=== PATIENT | female | born 1950 | race Caucasian/White ===

== ENCOUNTER 2019-05-05 10:48 | Day surgery (SDC) ==
[~2019-05-05 10:48] MED LIST: ASPIRIN 325 MG TABLET PO ONE; DIAZEPAM 5 MG TABLET PO ONE; MAGNESIUM SULF RIDER 2 GM in PREMIX 1 EACH IV PRN; POTASSIUM CHLORIDE RIDER 10 MEQ in PREMIX 1 EACH IV PRN; diphenhydrAMINE CAP 25 MG CAPSULE PO ONE
[2019-05-05] MEDS ORDERED: diphenhydrAMINE CAP 25 MG CAPSULE ONE (12:08)
[2019-05-05] MEDS ORDERED: DIAZEPAM 5 MG TABLET ONE (12:08)
[2019-05-05] MEDS ORDERED: ASPIRIN 325 MG TABLET ONE (12:09)
[2019-05-05] MEDS: SODIUM CHLORIDE 0.9% 1,000 ML IV SCH (12:15)
[2019-05-05] MEDS ORDERED: LIDOCAINE 1% 20 ML VIAL ONE (14:14)
[2019-05-05] MEDS ORDERED: MIDAZOLAM 2 MG/2 ML VIAL ONE (14:19)
[2019-05-05] MEDS ORDERED: HYDROmorphone 2 MG/1 ML VIAL ONE (14:19)
[2019-05-05] MEDS ORDERED: HEPARIN 5,000 UNIT/1 ML VIAL ONE (14:37)
[2019-05-05] MEDS ORDERED: hydrALAZINE 20 MG/1 ML VIAL ONE (15:52)
[2019-05-05] MEDS ORDERED: ZALEPLON 5 MG CAPSULE PO PRN (15:56)
[2019-05-05] MEDS ORDERED: ONDANSETRON 4 MG/2 ML VIAL IV PRN (15:56)
[2019-05-05] MEDS ORDERED: ACETAMINOPHEN 325 MG TABLET PO PRN (15:56)
[2019-05-05] MEDS ORDERED: NITROGLYCERIN SL 0.4 MG TABLET SL PRN (15:56)
[2019-05-05] MEDS ORDERED: HYDROmorphone 2 MG/1 ML VIAL IV PRN (15:56)
[2019-05-05] MEDS ORDERED: TICAGRELOR 90 MG TABLET ONE (16:02)
[2019-05-05] MEDS ORDERED: ALUMINUM/MAGNES/SIMETH MAX STR 30 ML UDCUP PO PRN (17:26)
[2019-05-05] MEDS: TICAGRELOR 90 MG TABLET PO SCH (21:20)
[2019-05-06] MEDS: SODIUM CHLORIDE 0.9% 1,000 ML IV SCH ×3 (00:16→09:27)
[2019-05-06 05:19] LABS: Basophils % 0.2 % (0.0-0.8); Hematocrit 31.4 VOL% (35.7-47.0); Hemoglobin 10.4 GM/DL (12.0-16.0); Immature Granulocytes % 0.4 %; Immature Granulocytes Absolute 0.02 #; Lymphocytes # 0.8 10*3/uL (1.4-4.0); Lymphocytes % 15.2 % (21.3-54.2); Mean Corpuscular HGB Conc 33.1 GM/DL (32-36); Mean Corpuscular Volume 96.9 FL (87-102); Mean Platelet Volume 11.8 FL (9.6-12.0); Monocytes % 6.6 % (1.7-12.7); Neutrophils % 77.6 % (38.7-73.9); Platelet Count 122 T/CUMM (130-400); Red Blood Count 3.24 MC/CUMM (3.8-5.5); Red Cell Distribution Width 13.4 % (9.3-17.3); White Blood Count 5.3 T/CUMM (4-12)
[2019-05-06 05:32] LABS: Calcium 9.3 MG/DL (8.5-10.1); Osmolality,Calculated 279.3 MOS/KG (273-304)
[2019-05-06 08:33] VITALS: BP 164/68
[2019-05-06] MEDS ORDERED: MAGNESIUM OXIDE 400 MG TABLET PO SCH (09:00)
[2019-05-06] MEDS ORDERED: ASPIRIN EC 81 MG TABLET PO SCH (09:00)
[2019-05-06] MEDS ORDERED: POTASSIUM CHLORIDE 10 MEQ TABLET PO SCH (09:00)
[2019-05-06] MEDS ORDERED: EZETIMIBE 10 MG TABLET PO SCH (09:00)
[2019-05-06] MEDS ORDERED: CYANOCOBALAMIN 500 MCG TABLET PO SCH (09:00)
[2019-05-06] MEDS ORDERED: FUROSEMIDE 20 MG TABLET PO SCH (09:00)
[2019-05-06] MEDS ORDERED: ISOSORBIDE MONONITRATE 60 MG TABLET PO SCH (09:00)
[2019-05-06] MEDS ORDERED: ROSUVASTATIN 20 MG TABLET PO SCH (09:00)
[2019-05-06] MEDS ORDERED: URSODIOL 300 MG CAPSULE PO SCH (09:00)
[2019-05-06] MEDS ORDERED: ATENOLOL 25 MG TABLET PO SCH (09:00)
[2019-05-06] MEDS: TICAGRELOR 90 MG TABLET PO SCH (09:25)
== END 2019-05-06 10:57 | disposition home or self-care (01) ==
LOC: N.CL 10:48 → N.5E 14:48 → N.CL 05-06 10:57 → N.5E 05-06 13:14
PROVIDERS: ATTEND Internal Medicine Cardiovascular Disease

== ENCOUNTER 2022-01-25 22:44 | Inpatient (IN) ==
[2022-01-25] MEDS ORDERED: ONDANSETRON 4 MG/2 ML VIAL IV ONE (23:23)
[2022-01-25] MEDS ORDERED: fentaNYL 100 MCG/2 ML VIAL IV STA (23:23)
[2022-01-26] MEDS ORDERED: propofoL 200 MG/20 ML VIAL IV STA (00:16)
[2022-01-26] MEDS ORDERED: SODIUM CHLORIDE 0.9% 1,000 ML IV STA ×2 (00:33→03:00)
[2022-01-26 01:26] LABS: INR 1.3; Partial Thromboplastin Time 30.4 SECS (23.8-32.1)
[2022-01-26 01:29] LABS: Basophils % 0.3 % (0.0-0.8); Eosinophils # 0.1 10*3/uL (0.0-0.87); Hemoglobin 9.5 GM/DL (12.0-16.0); Immature Granulocytes Absolute 0.06 #; Lymphocytes # 1.5 10*3/uL (1.4-4.0); Lymphocytes % 24.5 % (21.3-54.2); Mean Corpuscular HGB Conc 31.7 GM/DL (32-36); Mean Corpuscular Volume 104.5 FL (87-102); Mean Platelet Volume 11.2 FL (9.6-12.0); Monocytes % 6.6 % (1.7-12.7); Neutrophils % 65.6 % (38.7-73.9); Platelet Count 136 T/CUMM (130-400); Red Blood Count 2.87 MC/CUMM (3.8-5.5); Red Cell Distribution Width 18.9 % (9.3-17.3)
[2022-01-26 01:47] LABS: Alanine Aminotransferase 19 U/L (13-56); Albumin 1.7 G/DL (3.4-5.0); Alkaline Phosphatase 121 U/L (45-117); Aspartate Amino Transferase 27 U/L (0-37); Bilirubin,Total < 0.39 MG/DL (0.20-1.00); Blood Urea Nitrogen 6 MG/DL (7-18); Calcium 7.6 MG/DL (8.5-10.1); Carbon Dioxide 28 MMOL/L (21-32); Estimated Glom Filtration Rate 93 ML/MIN; Glucose 115 MG/DL (74-106); Osmolality,Calculated 286.7 MOS/KG (273-304); Potassium 2.9 MMOL/L (3.5-5.1); Sodium 145 MMOL/L (136-145)
[2022-01-26] MEDS ORDERED: DEXAMETHASONE 10 MG/1 ML VIAL IV ONE (01:50)
[2022-01-26] MEDS ORDERED: HYDROmorphone 2 MG/1 ML VIAL IV PRN (04:10)
[2022-01-26] MEDS ORDERED: ONDANSETRON 4 MG/2 ML VIAL IV PRN (04:12)
[2022-01-26] MEDS ORDERED: HYDROmorphone 1 MG/1 ML SYRINGE IV PRN (04:21)
[2022-01-26 08:09] LABS: Basophils % 0.1 % (0.0-0.8); Eosinophils % 0.1 % (0.00-10.9); Hematocrit 25.8 VOL% (35.7-47.0); Hemoglobin 8.3 GM/DL (12.0-16.0); Immature Granulocytes % 0.7 %; Immature Granulocytes Absolute 0.06 #; Lymphocytes # 0.8 10*3/uL (1.4-4.0); Mean Corpuscular HGB Conc 32.2 GM/DL (32-36); Mean Corpuscular Volume 104.5 FL (87-102); Mean Platelet Volume 11.3 FL (9.6-12.0); Monocytes % 5.9 % (1.7-12.7); Neutrophils % 83.2 % (38.7-73.9); Platelet Count 140 T/CUMM (130-400); Red Blood Count 2.47 MC/CUMM (3.8-5.5); White Blood Count 8.3 T/CUMM (4-12)
[2022-01-26] MEDS ORDERED: LACTATED RINGERS 1,000 ML IV ONE (08:26)
[2022-01-26] MEDS ORDERED: POTASSIUM CHLORIDE 20 MEQ TABLET PO SCH (09:00)
[2022-01-26] MEDS ORDERED: DEXAMETHASONE 10 MG/1 ML VIAL IV SCH (09:00)
[2022-01-26 09:12] LABS: Hematocrit 29.1 VOL% (35.7-47.0); Hemoglobin 9.2 GM/DL (12.0-16.0)
[2022-01-26 10:12] LABS: Amorphous Crystals,Urine Few /HPF (Few); Bacteria,Urine Many /HPF (Few); Hyaline Casts,Urine 80 /LPF (0-3); Mucus,Urine Many /LPF (Occasional); RBC,Urine 56 /HPF (0-4); Squamous Epithelial Cell,Urine Few /HPF (0-10)
[2022-01-26 10:13] LABS: Bilirubin,Urine Small mg/dL (Negative); Blood, Urine Large mg/dL (Negative); Glucose,Urine (UA) Negative (Negative); Ketones,Urine Negative (Negative); Nitrite,Urine Negative (Negative); Protein,Urine 2+ mg/dL (Negative); Urine Appearance Cloudy (Clear); Urine Color Amber (Yellow); Urine Specific Gravity 1.028 (1.001-1.035); Urine Urobilinogen 0.2 eU/dL (<2.0); Urine pH 5.5 (4.5-8.0)
[2022-01-26] MEDS: LACTATED RINGERS 1,000 ML IV SCH ×2 (10:30→17:06)
[2022-01-26] MEDS: cefTRIAXone 1,000 MG in SODIUM CHLORIDE 0.9% 100 ML IV SCH (11:28)
[2022-01-26] MEDS ORDERED: LACTATED RINGERS 500 ML IV ONE (12:13)
[2022-01-26] MEDS ORDERED: POTASSIUM CHLORIDE RIDER 10 MEQ/100 ML PREMIX IV PRN (12:23)
[2022-01-26] MEDS ORDERED: MAGNESIUM SULF RIDER 2 GM/50 ML PREMIX IV PRN (12:23)
[2022-01-26] MEDS ORDERED: MAGNESIUM SULF RIDER 4 GM/100 ML PREMIX IV PRN (12:23)
[2022-01-26] MEDS: POTASSIUM BICARB EFFERVESCENT 20 MEQ TAB.EFF PO SCH ×2 (14:10→16:56)
[2022-01-26] MEDS ORDERED: LACTATED RINGERS 250 ML IV ONE (15:58)
[2022-01-26 16:22] LABS: Calcium 7.4 MG/DL (8.5-10.1); Osmolality,Calculated 288.7 MOS/KG (273-304); Potassium 4.1 MMOL/L (3.5-5.1)
[2022-01-26] MEDS: PANTOPRAZOLE 40 MG TABLET PO SCH (16:56)
[2022-01-26] MEDS ORDERED: POTASSIUM BICARB EFFERVESCENT 20 MEQ TAB.EFF PO SCH (17:00)
[2022-01-26] MEDS: ROSUVASTATIN 20 MG TABLET PO SCH (20:15)
[2022-01-26] MEDS: DEXAMETHASONE 10 MG/1 ML VIAL IV SCH (20:15)
[2022-01-26] MEDS: ACETAMINOPHEN 325 MG TABLET PO PRN (20:35)
[2022-01-27] MEDS: ACETAMINOPHEN 325 MG TABLET PO PRN ×3 (05:05→20:45)
[2022-01-27] MEDS: LACTATED RINGERS 1,000 ML IV SCH ×2 (05:10→15:20)
[2022-01-27 06:34] LABS: Basophils % 0.1 % (0.0-0.8); Hematocrit 22.2 VOL% (35.7-47.0); Immature Granulocytes % 0.7 %; Immature Granulocytes Absolute 0.08 #; Lymphocytes % 9.4 % (21.3-54.2); Mean Corpuscular Volume 105.2 FL (87-102); Mean Platelet Volume 11.2 FL (9.6-12.0); Monocytes % 2.6 % (1.7-12.7); Neutrophils % 87.2 % (38.7-73.9); Platelet Count 141 T/CUMM (130-400); Red Blood Count 2.11 MC/CUMM (3.8-5.5); Red Cell Distribution Width 19.9 % (9.3-17.3)
[2022-01-27 06:35] LABS: White Blood Count 11.1 T/CUMM (4-12)
[2022-01-27 06:36] LABS: Hemoglobin 7.1 GM/DL (12.0-16.0)
[2022-01-27 06:39] LABS: Calcium 7.9 MG/DL (8.5-10.1); Osmolality,Calculated 289.8 MOS/KG (273-304); Potassium 4.8 MMOL/L (3.5-5.1)
[2022-01-27 06:48] LABS: Hypochromia Slight; Lymphocytes 6 % (20-55); Segmented Neutrophils 94 % (50-85); Total Cells Counted 100
[2022-01-27 06:49] LABS: Anisocytosis 1+; Macrocytosis 1+; Ovalocytes Slight; Platelet Estimate Adequate
[2022-01-27] MEDS ORDERED: SODIUM CHLORIDE 0.9% 1,000 ML IV PRN ×2 (08:00→08:04)
[2022-01-27] MEDS: ONDANSETRON 4 MG/2 ML VIAL IV PRN (09:12)
[2022-01-27] MEDS: DEXAMETHASONE 10 MG/1 ML VIAL IV SCH ×2 (09:12→20:45)
[2022-01-27] MEDS: PANTOPRAZOLE 40 MG TABLET PO SCH (09:17)
[2022-01-27] MEDS ORDERED: LORazepam 2 MG/1 ML VIAL IV PRN (09:37)
[2022-01-27] MEDS: cefTRIAXone 1,000 MG in SODIUM CHLORIDE 0.9% 100 ML IV SCH (15:19)
[2022-01-27] MEDS: ENOXAPARIN 40 MG/0.4 ML SYRINGE SUBCUT SCH (19:04)
[2022-01-27] MEDS: ROSUVASTATIN 20 MG TABLET PO SCH (20:45)
[2022-01-28] MEDS: ACETAMINOPHEN 325 MG TABLET PO PRN ×2 (03:20→09:07)
[2022-01-28 05:51] LABS: Hematocrit 23.2 VOL% (35.7-47.0); Hemoglobin 7.6 GM/DL (12.0-16.0); Immature Granulocytes % 2.1 %; Immature Granulocytes Absolute 0.17 #; Lymphocytes # 0.7 10*3/uL (1.4-4.0); Lymphocytes % 8.3 % (21.3-54.2); Mean Corpuscular HGB Conc 32.8 GM/DL (32-36); Mean Corpuscular Volume 100.9 FL (87-102); Mean Platelet Volume 11.5 FL (9.6-12.0); Monocytes % 4.3 % (1.7-12.7); Neutrophils % 85.3 % (38.7-73.9); Platelet Count 109 T/CUMM (130-400); Red Cell Distribution Width 20.7 % (9.3-17.3); White Blood Count 8.2 T/CUMM (4-12)
[2022-01-28 06:12] LABS: Albumin 1.7 G/DL (3.4-5.0); Bilirubin,Total 0.9 MG/DL (0.20-1.00); Calcium 8.1 MG/DL (8.5-10.1); Osmolality,Calculated 288.1 MOS/KG (273-304); Potassium 4.4 MMOL/L (3.5-5.1)
[2022-01-28 06:17] LABS: Hypochromia 1+; Lymphocytes 10 % (20-55); Microcytosis 1+; Segmented Neutrophils 85 % (50-85); Total Cells Counted 100
[2022-01-28] MEDS: LACTATED RINGERS 1,000 ML IV SCH ×2 (09:02→15:55)
[2022-01-28] MEDS: DEXAMETHASONE 10 MG/1 ML VIAL IV SCH ×2 (09:03→21:10)
[2022-01-28] MEDS: PANTOPRAZOLE 40 MG TABLET PO SCH (09:03)
[2022-01-28] MEDS: carvediloL 6.25 MG TABLET PO SCH ×2 (11:51→16:03)
[2022-01-28] MEDS: cefTRIAXone 1,000 MG in SODIUM CHLORIDE 0.9% 100 ML IV SCH (11:51)
[2022-01-28] MEDS: LIDOCAINE 5% PATCH TRANSDERM SCH ×2 (16:12→21:10)
[2022-01-28] MEDS ORDERED: carvediloL 25 MG TABLET PO SCH (17:00)
[2022-01-28] MEDS: ENOXAPARIN 40 MG/0.4 ML SYRINGE SUBCUT SCH (17:42)
[2022-01-28] MEDS ORDERED: lisinopriL 20 MG TABLET PO SCH (21:00)
[2022-01-28] MEDS: ROSUVASTATIN 20 MG TABLET PO SCH (21:10)
[2022-01-29] MEDS: ACETAMINOPHEN 325 MG TABLET PO PRN (02:15)
[2022-01-29] MEDS: LACTATED RINGERS 1,000 ML IV SCH (04:45)
[2022-01-29 05:43] LABS: Hematocrit 23.1 VOL% (35.7-47.0); Hemoglobin 7.6 GM/DL (12.0-16.0); Immature Granulocytes % 1.8 %; Immature Granulocytes Absolute 0.11 #; Lymphocytes # 0.6 10*3/uL (1.4-4.0); Mean Corpuscular HGB Conc 32.9 GM/DL (32-36); Mean Corpuscular Volume 102.7 FL (87-102); Mean Platelet Volume 11.7 FL (9.6-12.0); Monocytes % 3.4 % (1.7-12.7); NRBC # 0.03 10*3/uL; Neutrophils % 85.8 % (38.7-73.9); Platelet Count 98 T/CUMM (130-400); Red Blood Count 2.25 MC/CUMM (3.8-5.5); Red Cell Distribution Width 19.6 % (9.3-17.3); White Blood Count 6.2 T/CUMM (4-12)
[2022-01-29 06:05] LABS: Microcytosis 1+; Ovalocytes Slight; Platelet Estimate Decreased
[2022-01-29 06:06] LABS: Hypochromia 1+; Osmolality,Calculated 287.1 MOS/KG (273-304)
[2022-01-29 06:10] LABS: Albumin 1.7 G/DL (3.4-5.0); Bilirubin,Total 0.4 MG/DL (0.20-1.00); Calcium 8.4 MG/DL (8.5-10.1); Osmolality,Calculated 286.3 MOS/KG (273-304); Potassium 3.9 MMOL/L (3.5-5.1); Total Protein 5.1 G/DL (6.4-8.2)
[2022-01-29] MEDS ORDERED: LORazepam 2 MG/1 ML VIAL IV ONE (08:00)
[2022-01-29] MEDS: DEXAMETHASONE 10 MG/1 ML VIAL IV SCH ×2 (10:35→21:55)
[2022-01-29] MEDS: carvediloL 6.25 MG TABLET PO SCH (10:35)
[2022-01-29] MEDS: PANTOPRAZOLE 40 MG TABLET PO SCH (10:35)
[2022-01-29] MEDS: lisinopriL 20 MG TABLET PO SCH (10:35)
[2022-01-29] MEDS: LIDOCAINE 5% PATCH TRANSDERM SCH (10:36)
[2022-01-29] MEDS: ONDANSETRON 4 MG/2 ML VIAL IV PRN (10:47)
[2022-01-29] MEDS: cefTRIAXone 1,000 MG in SODIUM CHLORIDE 0.9% 100 ML IV SCH (11:21)
[2022-01-29] MEDS ORDERED: TUBERCULIN SKIN TEST 0.1 ML SYRINGE INTRADERM ONE (15:00)
[2022-01-29] MEDS: carvediloL 12.5 MG TABLET PO SCH (17:47)
[2022-01-29] MEDS: ENOXAPARIN 40 MG/0.4 ML SYRINGE SUBCUT SCH (17:47)
[2022-01-29] MEDS: ROSUVASTATIN 20 MG TABLET PO SCH (21:55)
[2022-01-30 06:06] LABS: Hematocrit 23.2 VOL% (35.7-47.0); Hemoglobin 7.8 GM/DL (12.0-16.0); Immature Granulocytes % 1.6 %; Immature Granulocytes Absolute 0.08 #; Lymphocytes # 0.5 10*3/uL (1.4-4.0); Lymphocytes % 9.3 % (21.3-54.2); Mean Corpuscular HGB Conc 33.6 GM/DL (32-36); Mean Corpuscular Volume 100.4 FL (87-102); Mean Platelet Volume 11.4 FL (9.6-12.0); Monocytes % 3.8 % (1.7-12.7); NRBC # 0.05 10*3/uL; Neutrophils % 85.3 % (38.7-73.9); Platelet Count 103 T/CUMM (130-400); Red Blood Count 2.31 MC/CUMM (3.8-5.5)
[2022-01-30 06:25] LABS: Calcium 8.2 MG/DL (8.5-10.1); Osmolality,Calculated 284.4 MOS/KG (273-304); Potassium 3.5 MMOL/L (3.5-5.1)
[2022-01-30 06:29] LABS: Bilirubin,Total 0.5 MG/DL (0.20-1.00); Calcium 8.7 MG/DL (8.5-10.1); Osmolality,Calculated 284.4 MOS/KG (273-304); Potassium 3.5 MMOL/L (3.5-5.1); Total Protein 5.5 G/DL (6.4-8.2)
[2022-01-30] MEDS ORDERED: hydrALAZINE 20 MG/1 ML VIAL IV PRN (07:26)
[2022-01-30] MEDS: LACTATED RINGERS 1,000 ML IV SCH ×3 (09:11→20:06)
[2022-01-30] MEDS: carvediloL 12.5 MG TABLET PO SCH ×2 (09:12→17:12)
[2022-01-30] MEDS: lisinopriL 20 MG TABLET PO SCH ×2 (09:12→21:23)
[2022-01-30] MEDS: PANTOPRAZOLE 40 MG TABLET PO SCH (09:12)
[2022-01-30] MEDS: ASPIRIN EC 81 MG TABLET PO SCH (09:12)
[2022-01-30] MEDS: LIDOCAINE 5% PATCH TRANSDERM SCH (09:13)
[2022-01-30] MEDS: DEXAMETHASONE 10 MG/1 ML VIAL IV SCH ×2 (09:54→21:24)
[2022-01-30] MEDS: cefTRIAXone 1,000 MG in SODIUM CHLORIDE 0.9% 100 ML IV SCH (11:55)
[2022-01-30] MEDS: ENOXAPARIN 40 MG/0.4 ML SYRINGE SUBCUT SCH (17:13)
[2022-01-30] MEDS: ROSUVASTATIN 20 MG TABLET PO SCH (21:23)
[2022-01-31] MEDS: LACTATED RINGERS 1,000 ML IV SCH (02:02)
[2022-01-31 05:39] LABS: Hematocrit 23.1 VOL% (35.7-47.0); Hemoglobin 7.7 GM/DL (12.0-16.0); Immature Granulocytes % 2.2 %; Immature Granulocytes Absolute 0.12 #; Lymphocytes # 0.4 10*3/uL (1.4-4.0); Lymphocytes % 8.1 % (21.3-54.2); Mean Corpuscular HGB Conc 33.3 GM/DL (32-36); Mean Corpuscular Volume 98.7 FL (87-102); Mean Platelet Volume 11.5 FL (9.6-12.0); Monocytes % 4.1 % (1.7-12.7); NRBC # 0.05 10*3/uL; Neutrophils % 85.6 % (38.7-73.9); Platelet Count 102 T/CUMM (130-400); Red Blood Count 2.34 MC/CUMM (3.8-5.5); Red Cell Distribution Width 18.6 % (9.3-17.3); White Blood Count 5.4 T/CUMM (4-12)
[2022-01-31 05:46] LABS: Calcium 7.9 MG/DL (8.5-10.1); Osmolality,Calculated 284.4 MOS/KG (273-304); Potassium 2.9 MMOL/L (3.5-5.1)
[2022-01-31 05:49] LABS: Bilirubin,Total 0.9 MG/DL (0.20-1.00); Calcium 7.8 MG/DL (8.5-10.1); Osmolality,Calculated 284.4 MOS/KG (273-304); Total Protein 5.1 G/DL (6.4-8.2)
[2022-01-31] MEDS: lisinopriL 20 MG TABLET PO SCH ×2 (08:55→22:10)
[2022-01-31] MEDS: carvediloL 12.5 MG TABLET PO SCH ×2 (08:55→17:17)
[2022-01-31] MEDS: DEXAMETHASONE 10 MG/1 ML VIAL IV SCH ×2 (08:55→22:10)
[2022-01-31] MEDS: PANTOPRAZOLE 40 MG TABLET PO SCH (08:55)
[2022-01-31] MEDS: ASPIRIN EC 81 MG TABLET PO SCH (08:55)
[2022-01-31] MEDS: LIDOCAINE 5% PATCH TRANSDERM SCH (08:56)
[2022-01-31] MEDS: cefTRIAXone 1,000 MG in SODIUM CHLORIDE 0.9% 100 ML IV SCH (12:43)
[2022-01-31] MEDS: POTASSIUM CHLORIDE 20 MEQ TABLET PO PRN ×4 (12:44→19:11)
[2022-01-31] MEDS: ENOXAPARIN 40 MG/0.4 ML SYRINGE SUBCUT SCH (17:18)
[2022-01-31] MEDS: ROSUVASTATIN 20 MG TABLET PO SCH (22:10)
[2022-02-01] MEDS: LACTATED RINGERS 1,000 ML IV SCH ×3 (01:31→19:29)
[2022-02-01 05:07] LABS: Bilirubin,Total 0.6 MG/DL (0.20-1.00); Calcium 8.1 MG/DL (8.5-10.1); Osmolality,Calculated 284.5 MOS/KG (273-304); Potassium 3.6 MMOL/L (3.5-5.1); Total Protein 5.2 G/DL (6.4-8.2)
[2022-02-01] MEDS: POTASSIUM CHLORIDE 20 MEQ TABLET PO PRN ×2 (09:05→11:21)
[2022-02-01] MEDS: ASPIRIN EC 81 MG TABLET PO SCH (09:05)
[2022-02-01] MEDS: carvediloL 12.5 MG TABLET PO SCH ×2 (09:05→17:07)
[2022-02-01] MEDS: PANTOPRAZOLE 40 MG TABLET PO SCH (09:05)
[2022-02-01] MEDS: DEXAMETHASONE 10 MG/1 ML VIAL IV SCH ×2 (09:05→21:21)
[2022-02-01] MEDS: lisinopriL 20 MG TABLET PO SCH ×2 (09:05→21:20)
[2022-02-01] MEDS: LIDOCAINE 5% PATCH TRANSDERM SCH (09:06)
[2022-02-01] MEDS: cefTRIAXone 1,000 MG in SODIUM CHLORIDE 0.9% 100 ML IV SCH (12:38)
[2022-02-01] MEDS: ENOXAPARIN 40 MG/0.4 ML SYRINGE SUBCUT SCH (17:07)
[2022-02-01] MEDS: ROSUVASTATIN 20 MG TABLET PO SCH (21:20)
[2022-02-02] MEDS: LACTATED RINGERS 1,000 ML IV SCH ×2 (01:04→09:21)
[2022-02-02 06:14] LABS: Albumin 2.1 G/DL (3.4-5.0); Bilirubin,Total 0.8 MG/DL (0.20-1.00); Calcium 7.9 MG/DL (8.5-10.1); Osmolality,Calculated 282.7 MOS/KG (273-304); Potassium 3.8 MMOL/L (3.5-5.1); Total Protein 5.2 G/DL (6.4-8.2)
[2022-02-02] MEDS: ASPIRIN EC 81 MG TABLET PO SCH (08:57)
[2022-02-02] MEDS: LIDOCAINE 5% PATCH TRANSDERM SCH (08:57)
[2022-02-02] MEDS: lisinopriL 20 MG TABLET PO SCH (08:58)
[2022-02-02] MEDS: carvediloL 12.5 MG TABLET PO SCH (08:58)
[2022-02-02] MEDS: PANTOPRAZOLE 40 MG TABLET PO SCH (08:58)
[2022-02-02] MEDS: DEXAMETHASONE 10 MG/1 ML VIAL IV SCH (09:03)
[2022-02-02] MEDS: POTASSIUM CHLORIDE 20 MEQ TABLET PO PRN (10:35)
[2022-02-02 11:50] VITALS: BP 164/80
[2022-02-02 12:25] LABS: Hematocrit 24.4 VOL% (35.7-47.0); Hemoglobin 7.8 GM/DL (12.0-16.0); Immature Granulocytes % 1.1 %; Immature Granulocytes Absolute 0.08 #; Lymphocytes # 0.5 10*3/uL (1.4-4.0); Lymphocytes % 6.3 % (21.3-54.2); Mean Corpuscular Volume 105.2 FL (87-102); Mean Platelet Volume 11.9 FL (9.6-12.0); NRBC # 0.07 10*3/uL; Neutrophils % 89.6 % (38.7-73.9); Platelet Count 113 T/CUMM (130-400); Red Blood Count 2.32 MC/CUMM (3.8-5.5); Red Cell Distribution Width 19.9 % (9.3-17.3); White Blood Count 7.6 T/CUMM (4-12)
[2022-02-02] MEDS: cefTRIAXone 1,000 MG in SODIUM CHLORIDE 0.9% 100 ML IV SCH (12:27)
== END 2022-02-02 14:51 | DRG 562 ==
LOC: EDBD → EDUNIT# → N.ED 22:44 → N.EDINP 01-26 04:16 → N.3E 01-26 06:39
PROVIDERS: ADMIT Hospitalist; ATTEND Hospitalist